=== PATIENT | male | born 1955 | race American Indian/Alaskan Native ===

== ENCOUNTER 2018-03-12 10:25 | Inpatient (IN) | payer OTHER ==
[2018-03-12] MEDS ORDERED: MORPHINE IV ONE (12:26)
[2018-03-12] MEDS ORDERED: ZOFRAN IV ONE (12:26)
--- NOTE | 2018-03-12 12:29 | Emergency Department Report ---
HPI - General Chief Complaint: Abdominal Pain Time Seen by Provider: 03/12/18 12:06 - HPI HPI: 62-year-old -Mex[place] male presents to the emergency department with a complaint of generalized abdominal pain, worse in the lower quadrants, as well as nausea and vomiting that has been going on since yesterday. He denies any fever, dysuria, diarrhea but does have some mild constipation. He last had a bowel movement 2 days ago. He did not take anything for his symptoms presentation. He has a past medical history of hypertension, but did not take his blood pressure medications today, as well as a history of diabetes. No recent travel or sick contacts at home. His primary care physician is Dr. Holliday. ED Past Medical Hx - Past Medical History Hx Hypertension: Yes - Social History Smoking Status: Never Smoker Substance Use Type: None - Medications Home Medications: Home Medications Medication Instructions Recorded Confirmed Last Taken Type glyBURIDE/METFORMIN HCL 1 each PO DAILY 03/12/18 03/12/18 Unknown History [Glyburide-Metformin 5-500 mg] ED Review of Systems ROS: Stated complaint: STOMACH PAIN Other details as noted in HPI Comment: All other systems reviewed and negative Constitutional: denies: chills, fever Eyes: denies: eye pain, eye discharge, vision change ENT: denies: ear pain, throat pain Respiratory: denies: cough, shortness of breath, wheezing Cardiovascular: denies: chest pain, palpitations Gastrointestinal: abdominal pain, nausea, vomiting, constipation Genitourinary: denies: urgency, dysuria Musculoskeletal: denies: back pain, joint swelling, arthralgia Skin: denies: rash, lesions Neurological: denies: headache, weakness, paresthesias Physical Exam - Physical Exam Vital Signs: Vital Signs 03/12/18 10:48 Temperature 98.1 F Pulse Rate 103 H Respiratory 20 Rate Blood Pressure 216/131 O2 Sat by Pulse 96 Oximetry Physical Exam: GENERAL: The patient is well-developed well-nourished. HENT: Normocephalic. Atraumatic. Patient has moist mucous membranes. EYES: Extraocular motions are intact. Pupils equal reactive to light bilaterally. NECK: Supple. Trachea is midline. CHEST/LUNGS: Clear to auscultation. There is no respiratory distress noted. HEART/CARDIOVASCULAR: Regular. There is mild tachycardia. There is no murmur. ABDOMEN: Lower abdomen is firm and slightly distended but not rigid. Tenderness to palpation to the generalized abdomen but worse in the lower quadrants. No guarding. Patient has normal bowel sounds. SKIN: Skin is warm and dry. NEURO: The patient is awake, alert, and oriented. The patient is cooperative. The patient has no focal neurologic deficits. The patient has normal speech. MUSCULOSKELETAL: There is no tenderness or deformity. There is no limitation range of motion. There is no evidence of acute injury. ED Course Vital Signs 03/12/18 10:48 Temperature 98.1 F Pulse Rate 103 H Respiratory 20 Rate Blood Pressure 216/131 O2 Sat by Pulse 96 Oximetry ED Medical Decision Making - Lab Data Result diagrams: 03/12/18 12:29 03/12/18 12:29 - EKG Data -: EKG Interpreted by Ks EKG shows normal: sinus rhythm, axis, intervals, QRS complexes (LVH), ST-T waves (T-wave inversions isolated to aVL and V6) - EKG Data When compared to previous EKG there are: previous EKG unavailable Interpretation: other (sinus rhythm, LVH, inverted T waves to aVL and V6) - Radiology Data Radiology results: report reviewed CT ABDOMEN PELVIS WITHOUT CONTRAST: HISTORY: abdominal pain. COMPARISON: none. TECHNIQUE: Helical CT in 1.25mm intervals without IV contrast. Sagittal and coronal reconstructions. FINDINGS: Lung bases: Mild cardiomegaly. The visualized lung bases are clear. Liver: Normal. Biliary system: Normal. Pancreas: Normal. Spleen: Normal. Kidneys/ureters/bladder: Mild perinephric stranding is identified bilaterally. A few punctate calyceal stones are identified in both kidneys. The ureters are slightly prominent but no obvious ureteral stone. There is marked enlargement of the prostate gland. The bladder is unremarkable. A Allison catheter is in place. Adrenal glands: Normal. Aorta: Mild calcifications. No aneurysm. Intestines: There are scattered diverticula in the distal colon. No evidence for bowel obstruction or acute inflammation. Appendix: Not identified, correlate with history. Ascites: None. Adenopathy: None. Musculoskeletal: Intact. Mild lumbar spondylosis. IMPRESSION: No acute inflammatory process is appreciated. Mild cardiomegaly. Mild bilateral perinephric stranding and scattered punctate renal stones. Market enlargement of the prostate gland. Transcribed By: TTR Dictated By: ALICE CUEVAS JR, MD Electronically Authenticated By: ALICE CUEVAS JR, MD Signed Date/Time: 03/12/18 6619 - Medical Decision Making Patient presents with abdominal pain, nausea, vomiting and presents with extremely elevated blood pressure. I took the bedside ultrasound and the patient appears to have some urinary retention and hydronephrosis. A Allison catheter was placed and the patient started to diurese about 1400 mL of urine and started feeling better. Labs show a creatinine of about 3.4 with a GFR of 22 and this patient that does not have any previous renal insufficiency history. There is a leukocytosis of 18,000. Urinalysis does not show any urinary tract infection. Patient has blood sugar greater than 600 but no signs of diabetic ketoacidosis at this time. He was given some IV insulin, antibiotics. Patient will be admitted to the hospital for further evaluation and treatment and was accepted for admission by the hospitalist. - Differential Diagnosis BPH, prostate cancer, UTI, hydronephrosis, colitis Critical Care Time: Yes Critical care time in (mins) excluding proc time.: 31 Critical care attestation.: If time is entered above; I have spent that time in minutes in the direct care of this critically ill patient, excluding procedure time. Critical care time spent on this patient during his initial evaluation, multiple re-evaluations, ordering an interpretation of labs and imaging, ordering and administration of medications. Critical Care Time: 31 minutes ED Disposition Clinical Impression: Hypertensive urgency, Hyperglycemia, Urinary retention, SIRS (systemic inflammatory response syndrome) Acute renal failure Qualifiers: Acute renal failure type: unspecified Qualified Code(s): N17.9 - Acute kidney failure, unspecified Disposition: DC-09 OP ADMIT IP TO THIS HOSP Is pt being admited?: Yes Condition: Serious Time of Disposition: 16:15
[2018-03-12 12:44] LABS: Basophils # (Auto) 0.1 K/mm3 (0.0-0.1); Basophils % (Auto) 0.3 % (0.0-1.8); Hematocrit 50.5 % (35.5-45.6); Hemoglobin 16.7 gm/dl (11.8-15.2); Lymphocytes # (Auto) 1.4 K/mm3 (1.2-5.4); Lymphocytes % (Auto) 7.7 % (13.4-35.0); Mean Corpuscular HGB Conc 33 % (32-34); Mean Corpuscular Hemoglobin 29 pg (28-32); Mean Corpuscular Volume 89 fl (84-94); Monocytes # (Auto) 1.1 K/mm3 (0.0-0.8); Monocytes % (Auto) 6.3 % (0.0-7.3); Platelet Count 254 K/mm3 (140-440); Red Blood Count 5.68 M/mm3 (3.65-5.03); Red Cell Distribution Width 14.3 % (13.2-15.2)
[2018-03-12 13:05] LABS: Albumin 4.5 g/dL (3.9-5); Bilirubin,Direct 0.3 mg/dL (0-0.2); Calcium 10.3 mg/dL (8.4-10.2)
[2018-03-12] MEDS ORDERED: NACL 0.9% 1000 ML 1,000 ML ONE (13:06)
[2018-03-12] MEDS ORDERED: APRESOLINE IV ONE ×2 (13:11→13:45)
--- NOTE | 2018-03-12 13:24 | XRay Report ---
ABDOMEN, 2 VIEWS: HISTORY: Abdominal pain. There is moderate stool throughout the colon and rectum. The abdominal gas pattern is unremarkable. No masses or organomegaly is identified and there is no gross evidence of free air or fluid. No significant soft tissue calcifications are noted. IMPRESSION: Fecal retention.
[2018-03-12] MEDS ORDERED: HumuLIN R IV ONE (13:44)
[2018-03-12 14:13] LABS: Bilirubin,Urine NEG (Negative); Blood,Urine NEG (Negative); Color,Urine Yellow (Yellow); Protein,Urine <15 mg/dL mg/dL (Negative); Urobilinogen,Urine < 2.0 mg/dL (<2.0)
[2018-03-12 14:15] LABS: Bacteria,Urine 1+ /HPF (Negative)
[2018-03-12 14:16] LABS: Mucus,Urine FEW /HPF; WBC,Urine < 1.0 /HPF (0.0-6.0)
--- NOTE | 2018-03-12 14:53 | Cat Scan Report ---
CT ABDOMEN PELVIS WITHOUT CONTRAST: HISTORY: abdominal pain. COMPARISON: none. TECHNIQUE: Helical CT in 1.25mm intervals without IV contrast. Sagittal and coronal reconstructions. FINDINGS: Lung bases: Mild cardiomegaly. The visualized lung bases are clear. Liver: Normal. Biliary system: Normal. Pancreas: Normal. Spleen: Normal. Kidneys/ureters/bladder: Mild perinephric stranding is identified bilaterally. A few punctate calyceal stones are identified in both kidneys. The ureters are slightly prominent but no obvious ureteral stone. There is marked enlargement of the prostate gland. The bladder is unremarkable. A Allison catheter is in place. Adrenal glands: Normal. Aorta: Mild calcifications. No aneurysm. Intestines: There are scattered diverticula in the distal colon. No evidence for bowel obstruction or acute inflammation. Appendix: Not identified, correlate with history. Ascites: None. Adenopathy: None. Musculoskeletal: Intact. Mild lumbar spondylosis. IMPRESSION: No acute inflammatory process is appreciated. Mild cardiomegaly. Mild bilateral perinephric stranding and scattered punctate renal stones. Market enlargement of the prostate gland.
[2018-03-12] MEDS ORDERED: ZOSYN/NS 4.5GM/100ML 4.5 GM/100 ML VIAL IV SCH ×2 (15:00→22:00)
--- NOTE | 2018-03-12 15:07 | History and Physical Report ---
History of Present Illness Chief complaint: my stomach hurts History of present illness: 62 YO Male with HTN,DM presents to ED for evaluation. Pt states that he has experienced generalized abdominal pain over the past 1 day, with persistent symptoms over the same time frame. Pt also acknowledges nausea, multiple episodes of vomiting, polydipsia, and polyuria. Pt denies fever, chills, CP, Palpitations, Trauma, BRBPR, productive cough, skin rash or recent ill contacts. Pt seen and evaluated in ED and found to have evidence of Sepsis, DKA , Acidosis, Acute Renal Failure, as well Accelerated Hypertension. Pt also found to have urinary retention, which was resolved with placement of thompson catheter with return of 1400cc of urine. Pt admitted to ICU and initiated on Sepsis, and DKA protocols. Past History Past Medical History: diabetes, hypertension Past Surgical History: No surgical history, Other (reviewed) Social history: single. denies: smoking, alcohol abuse, prescription drug abuse Family history: diabetes, hypertension Medications and Allergies Allergies Allergy/AdvReac Type Severity Reaction Status Date / Time No Known Allergies Allergy Unverified 03/12/18 10:48 Home Medications Medication Instructions Recorded Confirmed Last Taken Type glyBURIDE/METFORMIN HCL 1 each PO DAILY 03/12/18 03/12/18 Unknown History [Glyburide-Metformin 5-500 mg] Active Meds: Active Medications Piperacillin Sod/Tazobactam Sod (Zosyn/Ns 4.5gm/100ml) 4.5 gm in 100 mls @ 200 mls/hr IV ONCE SIRENA Review of Systems Constitutional: no weight loss, no weight gain, no fever, no chills Ears, nose, mouth and throat: no ear pain, no ear discharge, no tinnitis, no decreased hearing, no nose pain Cardiovascular: no chest pain, no orthopnea, no palpitations, no rapid/ irregular heart beat, no edema, no syncope Respiratory: no cough, no cough with sputum, no excessive sputum, no hemoptysis , no shortness of breath Gastrointestinal: abdominal pain, nausea, vomiting, no constipation, no change in bowel habits, no hematemesis, no melena, no hematochezia, no loss of appetite Genitourinary Male: no dysuria, no hematuria, no flank pain, no discharge, no urinary frequency Rectal: no pain, no incontinence, no bleeding Musculoskeletal: no neck stiffness, no neck pain, no shooting arm pain, no arm numbness/tingling, no low back pain, no shooting leg pain, no leg numbness/ tingling Integumentary: no rash, no pruritis, no redness, no sores, no wounds Neurological: no transient paralysis, no paralysis, no weakness, no syncope, no tremors, no aphasia, no change in mentation, no memory loss Psychiatric: no memory loss, no change in sleep habits, no sleep disturbances, no insomnia, no hypersomnia, no change in appetite, no change in libido Endocrine: polyphagia, polydipsia, polyuria, no cold intolerance, no heat intolerance, no nocturia, no excessive sweating, no flushing, no deepening of the voice, no thyroid mass, no palpatations, no high blood sugars Hematologic/Lymphatic: no easy bruising, no easy bleeding, no lymphadenopathy, no lymphedema Allergic/Immunologic: no urticaria, no allergic rhinitis, no persistent infections, no anaphylaxis, no angioedema Exam - Constitutional Vitals: Temp Pulse Resp BP Pulse Ox 98.1 F 86 22 183/82 97 03/12/18 10:48 03/12/18 14:30 03/12/18 14:30 03/12/18 14:30 03/12/18 14:30 General appearance: Present: mild distress - EENT Eyes: Present: PERRL ENT: hearing intact, clear oral mucosa - Neck Neck: Present: supple, normal ROM - Respiratory Respiratory effort: normal Respiratory: bilateral: CTA - Cardiovascular Heart Sounds: Present: S1 & S2. Absent: rub, click - Extremities Extremities: pulses symmetrical, No edema Peripheral Pulses: within normal limits - Abdominal General gastrointestinal: Present: soft, non-tender, non-distended, normal bowel sounds Male genitourinary: Present: normal - Integumentary Integumentary: Present: clear, warm, dry - Musculoskeletal Musculoskeletal: generalized weakness - Psychiatric Psychiatric: appropriate mood/affect, intact judgment & insight - Neurologic Neurologic: CNII-XII intact, moves all extremities Results - Labs CBC & Chem 7: 03/12/18 12:29 03/12/18 15:36 Labs: Abnormal lab results 03/12/18 03/12/18 03/12/18 Range/Units 12:29 12:29 12:29 WBC 18.0 H (4.5-11.0) K/mm3 RBC 5.68 H (3.65-5.03) M/mm3 Hgb 16.7 H (11.8-15.2) gm/dl Hct 50.5 H (35.5-45.6) % Lymph % (Auto) 7.7 L (13.4-35.0) % Mcminn # 1.1 H (0.0-0.8) K/mm3 Seg Neutrophils % 85.7 H (40.0-70.0) % Seg Neutrophils # 15.4 H (1.8-7.7) K/mm3 Sodium 135 L (137-145) mmol/L Potassium 5.1 H (3.6-5.0) mmol/L Chloride 95.7 L (98-107) mmol/L BUN 43 H (9-20) mg/dL Creatinine 3.4 H (0.8-1.5) mg/dL Glucose 608 H* (75-100) mg/dL Lactic Acid 3.00 H* (0.7-2.0) mmol/L Calcium 10.3 H (8.4-10.2) mg/dL Direct Bilirubin 0.3 H (0-0.2) mg/dL AST 54 H (5-40) units/L Total Protein 8.5 H (6.3-8.2) g/dL 03/12/18 03/12/18 Range/Units 13:08 14:11 WBC (4.5-11.0) K/mm3 RBC (3.65-5.03) M/mm3 Hgb (11.8-15.2) gm/dl Hct (35.5-45.6) % Lymph % (Auto) (13.4-35.0) % Mcminn # (0.0-0.8) K/mm3 Seg Neutrophils % (40.0-70.0) % Seg Neutrophils # (1.8-7.7) K/mm3 Sodium (137-145) mmol/L Potassium (3.6-5.0) mmol/L Chloride (98-107) mmol/L BUN (9-20) mg/dL Creatinine (0.8-1.5) mg/dL Glucose (75-100) mg/dL Lactic Acid 3.00 H* 3.20 H* (0.7-2.0) mmol/L Calcium (8.4-10.2) mg/dL Direct Bilirubin (0-0.2) mg/dL AST (5-40) units/L Total Protein (6.3-8.2) g/dL Assessment and Plan - Patient Problems (1) Sepsis Current Visit: Yes Status: Acute Qualifiers: Sepsis type: sepsis due to unspecified organism Qualified Code(s): A41.9 - Sepsis, unspecified organism Plan to address problem: IV antibiotics, IVF resuscitation, monitor uop q shift, blood cultures, urinalysis, chest x ray,CBC, bmp, serial lactic acid. (2) ARF (acute renal failure) with tubular necrosis Current Visit: Yes Status: Acute Plan to address problem: IVF resuscitation, monitor uop q shift, Nephrology consulted in ED, (3) DKA (diabetic ketoacidoses) Current Visit: Yes Status: Acute Qualifiers: Diabetes mellitus type: type 1 Plan to address problem: DKA protocol: Insulin drip, IVF resuscitation, monitor serum potassium, monitor anion gap with serial bmp, The high probability of a clinically significant, sudden or life threatening deterioration of the [endocrine, pulmonary, renal] system(s) required my full and direct attention, intervention and personal management. The aggregate critical care time was [65] minutes. This time is in addition to time spent performing reported procedures but includes the following: [x] Data Review and interpretation [x] Patient assessment and monitoring of vital signs [x] Documentation [x] Medication orders and management (4) Acidosis Current Visit: Yes Status: Acute Plan to address problem: treat sepsis, serial lactic acid, IVF resuscitation therapy. (5) Hypertensive urgency, malignant Current Visit: Yes Status: Acute Plan to address problem: IN hydralazine prn, pain control, (6) DVT prophylaxis Current Visit: Yes Status: Acute Plan to address problem: SCD to BLE while in bed.
[2018-03-12] MEDS ORDERED: VANCOMYCIN 1,750 MG in NACL 0.9% 500 ML 500 ML IV ONE (15:10)
[2018-03-12] MEDS ORDERED: NACL 0.9% 1000 ML IV ONE (15:10)
[2018-03-12] MEDS ORDERED: D50W (25GM) Syringe IV PRN (15:10)
[2018-03-12] MEDS ORDERED: SODIUM CHLORIDE FLUSH SYRINGE 10 ML IV PRN (15:10)
[2018-03-12] MEDS ORDERED: NACL 0.9% 250ML 250 ML ONE (16:06)
[2018-03-12 16:14] LABS: Calcium 10.8 mg/dL (8.4-10.2)
[2018-03-12] MEDS: HumuLIN R 100 UNITS in NACL 0.9% 99 ML IV SCH ×3 (17:25→19:17)
[2018-03-12 19:18] LABS: Calcium 10.1 mg/dL (8.4-10.2)
[2018-03-12] MEDS: APRESOLINE IV PRN (19:50)
[2018-03-12] MEDS ORDERED: D5W/NS W/KCL 20MEQ 20 MEQ/1,000 ML BAG IV SCH (20:00)
[2018-03-12 21:02] LABS: Amphetamine Screen,Urine PRESUMPTIVE NEGATIVE; Benzodiazepines Screen,Urine PRESUMPTIVE NEGATIVE; Cannabinoid Screen,Urine PRESUMPTIVE NEGATIVE; Cocaine Screen,Urine PRESUMPTIVE NEGATIVE; Methadone Screen,Urine PRESUMPTIVE NEGATIVE; Opiate Screen,Urine PRESUMPTIVE NEGATIVE
[2018-03-12 21:17] LABS: Calcium 9.7 mg/dL (8.4-10.2)
[2018-03-12] MEDS: ZOSYN/NS 2.25 GM/50ML 2.25 GM/50 ML BAG IV SCH (22:20)
[2018-03-12] MEDS: SODIUM CHLORIDE FLUSH SYRINGE 10 ML IV SCH (22:25)
[2018-03-12 23:27] LABS: Calcium 9.2 mg/dL (8.4-10.2)
[2018-03-12] MEDS ORDERED: HumuLIN R SUB-Q SCH (23:45)
[2018-03-13] MEDS: APRESOLINE IV PRN ×3 (02:57→15:25)
[2018-03-13] MEDS: ZOSYN/NS 2.25 GM/50ML 2.25 GM/50 ML BAG IV SCH ×2 (03:04→09:00)
[2018-03-13] MEDS ORDERED: HumuLIN R SUB-Q SCH (04:00)
[2018-03-13] MEDS: D5W/NS W/KCL 20MEQ 20 MEQ/1,000 ML BAG IV SCH ×2 (04:58→06:23)
[2018-03-13 06:17] LABS: BUN/Creatinine Ratio 19; Blood Urea Nitrogen 26 mg/dL (9-20); Calcium 9.3 mg/dL (8.4-10.2); Hemolysis Index 28
--- NOTE | 2018-03-13 08:13 | Consultation ---
History of Present Illness - Reason for Consult Consult date: 03/13/18 acute renal failure, hyperkalemia, metabolic acidosis - History of Present Illness The patient was a 62 YO Male with history significant for HTN and DM who presented to [facility] ED with c/o abdominal pain of one day duration. Patient was a poor historian. The pain was generalized, persistent and not radiating. Pt also reported nausea, vomiting, polydipsia and polyuria. Pt denied fever, chills , CP, dysuria, hematuria, DUQUE, rash or recent ill contacts. Pt was found to have BP around 220/130, blood sugar 608, creatinine 3.4 and potassium 5.1. He was admitted with Sepsis, DKA, Acute Renal Failure and Accelerated Hypertension. Pt also found to have urinary retention, return of 1400cc of urine with placement of thompson catheter. Past History Past Medical History: diabetes, hypertension Past Surgical History: No surgical history, Other (reviewed) Social history: single. denies: smoking, alcohol abuse, prescription drug abuse Family history: diabetes, hypertension Medications and Allergies Allergies Allergy/AdvReac Type Severity Reaction Status Date / Time No Known Allergies Allergy Unverified 03/12/18 10:48 Home Medications Medication Instructions Recorded Confirmed Last Taken Type glyBURIDE/METFORMIN HCL 1 each PO DAILY 03/12/18 03/12/18 Unknown History [Glyburide-Metformin 5-500 mg] Active Meds: Active Medications Dextrose (D50w (25gm) Syringe) 0 ml IV PRN PRN PRN Reason: Hypoglycemia Hydralazine HCl (Apresoline) 10 mg IV Q6HR PRN PRN Reason: Hypertension Last Admin: 03/13/18 02:57 Dose: 10 mg Insulin Human Regular 100 (units/ Sodium Chloride) 100 mls @ 1 mls/hr IV TITR SIRENA; Protocol Last Titration: 03/13/18 07:01 Dose: 2.5 units/hr, 2.5 mls/hr Piperacillin Sod/Tazobactam Sod (Zosyn/Ns 2.25 Gm/50ml) 2.25 gm in 50 mls @ 100 mls/hr IV Q6H SIRENA Last Infusion: 03/13/18 03:30 Dose: Infused Potassium Chloride/Dextrose/Sod Cl (D5w/Ns W/Kcl 20meq) 20 meq in 1,000 mls @ 100 mls/hr IV DIRECT SIRENA Last Admin: 03/13/18 06:23 Dose: 100 mls/hr Sodium Chloride (Sodium Chloride Flush Syringe 10 Ml) 10 ml IV BID [facility] Last Admin: 03/12/18 22:25 Dose: 10 ml Sodium Chloride (Sodium Chloride Flush Syringe 10 Ml) 10 ml IV PRN PRN PRN Reason: LINE FLUSH Review of Systems ROS unobtainable: due to mental status (very poor historian) Exam - Vital Signs Vital signs: Vital Signs Temp Pulse Resp BP Pulse Ox 98.1 F 103 H 20 216/131 96 03/12/18 10:48 03/12/18 10:48 03/12/18 10:48 03/12/18 10:48 03/12/18 10:48 - General Appearance General appearance: well-developed, well-nourished, appears stated age, other ( not in distress) EENT: ATNC, PERRL, hearing intact, vision intact Neck: Present: neck supple, trachea midline Respiratory: Clear to Ascultation Heart: regular, S1S2, no murmurs Gastrointestinal: Present: normoactive bowel sounds, other (thompson catheter). Absent: tenderness Integumentary: no rash, warm and dry Neurologic: no focal deficit, no asterixis Musculoskeletal: Present: other (no edema) Psychiatric: cooperative Results - Lab Results 03/12/18 12:29 03/13/18 05:22 Most recent lab results Calcium 9.3 mg/dL (8.4-10.2) 03/13/18 05:22 Phosphorus 3.20 mg/dL (2.5-4.5) 03/12/18 15:36 Magnesium 2.80 mg/dL (1.7-2.3) H 03/12/18 15:36 - Image Kidney/bladder ultrasound: other Assessment and Plan 1. Acute kidney injury: Likely Vasomotor / hemodynamic JAMARI in the setting of volume depletion. Real function is improving. Continue IV fluids. CT was negative for hydronephrosis. Monitor. 2. Urinary retention: S/p thompson catheter. Elevated PSA. On Finasteride. 3. Electrolytes: Hyperkalemia, improved. Hypernatremia, 1/2 NS. 4. Hyperosmolar state: Improving. 5. Sepsis. 6. Uncontrolled HTN: Resume home meds.
--- NOTE | 2018-03-13 09:31 | Consultation ---
History of Present Illness Consult date: 03/13/18 Requesting physician: NETTA GARCIA Reason for consult: other (Sepsis Syndrome; DKA; JAMARI) History of present illness: PULMONARY/CCM CONSULT NOTE (Full dictation # [id number]) Please see dictated notes for full details Past History Past Medical History: diabetes, hypertension Past Surgical History: No surgical history, Other (reviewed) Social history: single. denies: smoking, alcohol abuse, prescription drug abuse Family history: diabetes, hypertension Medications and Allergies Allergies Allergy/AdvReac Type Severity Reaction Status Date / Time No Known Allergies Allergy Unverified 03/12/18 10:48 Home Medications Medication Instructions Recorded Confirmed Last Taken Type glyBURIDE/METFORMIN HCL 1 each PO DAILY 03/12/18 03/12/18 Unknown History [Glyburide-Metformin 5-500 mg] Active Meds: Active Medications Dextrose (D50w (25gm) Syringe) 0 ml IV PRN PRN PRN Reason: Hypoglycemia Hydralazine HCl (Apresoline) 10 mg IV Q6HR PRN PRN Reason: Hypertension Last Admin: 03/13/18 09:17 Dose: 10 mg Insulin Human Regular 100 (units/ Sodium Chloride) 100 mls @ 1 mls/hr IV TITR SIRENA; Protocol Last Titration: 03/13/18 09:02 Dose: 1 units/hr, 1 mls/hr Piperacillin Sod/Tazobactam Sod (Zosyn/Ns 2.25 Gm/50ml) 2.25 gm in 50 mls @ 100 mls/hr IV Q6H SIRENA Last Admin: 03/13/18 09:00 Dose: 100 mls/hr Potassium Chloride/Dextrose/Sod Cl (D5w/Ns W/Kcl 20meq) 20 meq in 1,000 mls @ 100 mls/hr IV DIRECT SIRENA Last Admin: 03/13/18 06:23 Dose: 100 mls/hr Sodium Chloride (Sodium Chloride Flush Syringe 10 Ml) 10 ml IV BID SIRENA Last Admin: 03/12/18 22:25 Dose: 10 ml Sodium Chloride (Sodium Chloride Flush Syringe 10 Ml) 10 ml IV PRN PRN PRN Reason: LINE FLUSH Physical Examination Vital signs: Vital Signs Temp Pulse Resp BP Pulse Ox 98.1 F 103 H 20 216/131 96 03/12/18 10:48 03/12/18 10:48 03/12/18 10:48 03/12/18 10:48 03/12/18 10:48 Results - Laboratory Findings CBC and BMP: 03/12/18 12:29 03/13/18 05:22 Abnormal lab findings: Abnormal Labs 03/12/18 03/12/18 03/12/18 12:29 12:29 12:29 WBC 18.0 H RBC 5.68 H Hgb 16.7 H Hct 50.5 H Lymph % (Auto) 7.7 L [place] # 1.1 H Seg Neutrophils % 85.7 H Seg Neutrophils # 15.4 H Sodium 135 L Potassium 5.1 H Chloride 95.7 L BUN 43 H Creatinine 3.4 H Glucose 608 H* POC Glucose Hemoglobin A1c Lactic Acid 3.00 H* Calcium 10.3 H Magnesium Direct Bilirubin 0.3 H AST 54 H Total Protein 8.5 H 03/12/18 03/12/18 03/12/18 13:08 14:11 15:31 WBC RBC Hgb Hct Lymph % (Auto) [place] # Seg Neutrophils % Seg Neutrophils # Sodium Potassium Chloride BUN Creatinine Glucose POC Glucose 300 H Hemoglobin A1c Lactic Acid 3.00 H* 3.20 H* Calcium Magnesium Direct Bilirubin AST Total Protein 03/12/18 03/12/18 03/12/18 15:36 15:36 15:36 WBC RBC Hgb Hct Lymph % (Auto) [place] # Seg Neutrophils % Seg Neutrophils # Sodium Potassium Chloride BUN Creatinine Glucose POC Glucose Hemoglobin A1c 9.4 H Lactic Acid 5.30 H* Calcium Magnesium 2.80 H Direct Bilirubin AST Total Protein 03/12/18 03/12/18 03/12/18 15:36 17:05 18:05 WBC RBC Hgb Hct Lymph % (Auto) [place] # Seg Neutrophils % Seg Neutrophils # Sodium Potassium Chloride BUN 42 H Creatinine 3.0 H Glucose 317 H POC Glucose 267 H 192 H Hemoglobin A1c Lactic Acid Calcium 10.8 H Magnesium Direct Bilirubin AST Total Protein 03/12/18 03/12/18 03/12/18 18:50 18:50 19:07 WBC RBC Hgb Hct Lymph % (Auto) [place] # Seg Neutrophils % Seg Neutrophils # Sodium 148 H Potassium Chloride 109.7 H BUN 39 H Creatinine 2.5 H Glucose 144 H POC Glucose 142 H Hemoglobin A1c Lactic Acid 3.70 H* Calcium Magnesium Direct Bilirubin AST Total Protein 10/08/2503/12/18 03/12/18 20:02 20:30 20:30 WBC RBC Hgb Hct Lymph % (Auto) [place] # Seg Neutrophils % Seg Neutrophils # Sodium 148 H Potassium Chloride 111.9 H BUN 35 H Creatinine 2.2 H Glucose 113 H POC Glucose 116 H Hemoglobin A1c Lactic Acid 2.40 H* Calcium Magnesium Direct Bilirubin AST Total Protein 03/12/18 03/12/18 03/12/18 21:04 21:53 22:39 WBC RBC Hgb Hct Lymph % (Auto) [place] # Seg Neutrophils % Seg Neutrophils # Sodium 148 H Potassium Chloride 113.2 H BUN 31 H Creatinine 1.8 H Glucose 167 H POC Glucose 107 H 129 H Hemoglobin A1c Lactic Acid Calcium Magnesium Direct Bilirubin AST Total Protein 03/12/18 03/13/18 03/13/18 23:30 03:26 03:55 WBC RBC Hgb Hct Lymph % (Auto) [place] # Seg Neutrophils % Seg Neutrophils # Sodium Potassium Chloride BUN Creatinine Glucose POC Glucose 176 H 227 H Hemoglobin A1c Lactic Acid 5.40 H* Calcium Magnesium Direct Bilirubin AST Total Protein 03/13/18 03/13/18 03/13/18 05:01 05:22 06:59 WBC RBC Hgb Hct Lymph % (Auto) [place] # Seg Neutrophils % Seg Neutrophils # Sodium 149 H Potassium Chloride 113.9 H BUN 26 H Creatinine Glucose 262 H POC Glucose 231 H 178 H Hemoglobin A1c Lactic Acid Calcium Magnesium Direct Bilirubin AST Total Protein 03/13/18 08:14 WBC RBC Hgb Hct Lymph % (Auto) [place] # Seg Neutrophils % Seg Neutrophils # Sodium Potassium Chloride BUN Creatinine Glucose POC Glucose 134 H Hemoglobin A1c Lactic Acid Calcium Magnesium Direct Bilirubin AST Total Protein
[2018-03-13] MEDS: SODIUM CHLORIDE FLUSH SYRINGE 10 ML IV SCH ×2 (10:32→21:49)
--- NOTE | 2018-03-13 10:36 | XRay Report ---
AP CHEST: HISTORY: Hypertension emergency Borderline to mild cardiomegaly is suspected. Pulmonary vascularity is within normal limits. The lungs are clear. The bony structures are intact. IMPRESSION: Borderline to mild cardiomegaly. Lungs clear.
[2018-03-13] MEDS: LOVENOX SUB-Q SCH (10:43)
--- NOTE | 2018-03-13 10:56 | Progress Note ---
Assessment and Plan Assessment and plan: my stomach hurts History of present illness: 62 YO Male with HTN,DM presents to ED for evaluation. Pt states that he has experienced generalized abdominal pain over the past 1 day, with persistent symptoms over the same time frame. Pt also acknowledges nausea, multiple episodes of vomiting, polydipsia, and polyuria. Pt denies fever, chills, CP, Palpitations, Trauma, BRBPR, productive cough, skin rash or recent ill contacts. Pt seen and evaluated in ED and found to have evidence of Sepsis, DKA , Acidosis, Acute Renal Failure, as well Accelerated Hypertension. Pt also found to have urinary retention, which was resolved with placement of thompson catheter with return of 1400cc of urine. Pt admitted to ICU and initiated on Sepsis, and DKA protocols. Past History Past Medical History: diabetes, hypertension Sepsis ruled out, w/o negative Obstructive uropathy due to enlarged prostate -keep thompson in place, fup PSA, urology consulted started flomax and finasteride ARF (acute renal failure) with acute tubular stasis -continue thompson, continue IVF, resolving DKA (diabetic ketoacidoses) transition to Sq insulins Hypertensive urgency, malignant optimize BP meds CCT 33 minutes History Interval history: Review of systems Constitutional: No fevers, no malaise, no joint pains CVS: No chest pain, no orthopnea, no dyspnea on exertion, no pedal edema GI: No abdominal pain, no diarrhea, no vomiting, no constipation Respiratory: No shortness of breath, no wheezing, no coughing Hospitalist Physical - Physical exam Narrative exam: General.: Appears well, no distress, nontoxic HEENT: Moist mucous membranes, extraocular muscles intact, no lymphadenopathy Neck: supple Cardiac: S1-S2 heard Lungs: clear to auscultation bilaterally Abdomen: soft , nontender, nondistended, bowel sounds positive Extremities: no edema clubbing or cyanosis Skin: no rash or lesions Neurologic: no gross focal deficits Psych: appropriate behavior, appropriate mood, corporative, judgment intact - Constitutional Vitals: Temp Pulse Resp BP Pulse Ox 97.3 F L 85 17 179/63 93 03/13/18 08:00 03/13/18 10:42 03/13/18 09:30 03/13/18 10:42 03/13/18 09:30 General appearance: Present: mild distress Results - Labs CBC & Chem 7: 03/12/18 12:29 03/14/18 05:00 Labs: Laboratory Last Values WBC 18.0 K/mm3 (4.5-11.0) H 03/12/18 12: RBC 5.68 M/mm3 (3.65-5.03) H 03/12/18 12: Hgb 16.7 gm/dl (11.8-15.2) H 03/12/18 12: Hct 50.5 % (35.5-45.6) H 03/12/18 12: MCV 89 fl (84-94) 03/12/18 12: MCH 29 pg (28-32) 03/12/18 12: MCHC 33 % (32-34) 03/12/18 12: RDW 14.3 % (13.2-15.2) 03/12/18 12: Plt Count 254 K/mm3 (140-440) 03/12/18 12: Lymph % (Auto) 7.7 % (13.4-35.0) L 03/12/18 12: [place] % (Auto) 6.3 % (0.0-7.3) 03/12/18 12: Eos % (Auto) 0.0 % (0.0-4.3) 03/12/18 12: Baso % (Auto) 0.3 % (0.0-1.8) 03/12/18 12: Lymph # 1.4 K/mm3 (1.2-5.4) 03/12/18 12: [place] # 1.1 K/mm3 (0.0-0.8) H 03/12/18 12: Eos # 0.0 K/mm3 (0.0-0.4) 03/12/18 12: Baso # 0.1 K/mm3 (0.0-0.1) 03/12/18 12: Seg Neutrophils % 85.7 % (40.0-70.0) H 03/12/18 12: Seg Neutrophils # 15.4 K/mm3 (1.8-7.7) H 03/12/18 12: VBG pH 7.343 (7.320-7.420) 03/12/18 13:45 Sodium 149 mmol/L (137-145) H 03/13/18 05:22 Potassium 4.5 mmol/L (3.6-5.0) 03/13/18 05:22 Chloride 113.9 mmol/L (98-107) H 03/13/18 05:22 Carbon Dioxide 22 mmol/L (22-30) 03/13/18 05:22 Anion Gap 18 mmol/L 03/13/18 05:22 BUN 26 mg/dL (9-20) H 03/13/18 05:22 Creatinine 1.4 mg/dL (0.8-1.5) 03/13/18 05:22 Estimated GFR > 60 ml/min 03/13/18 05:22 BUN/Creatinine Ratio 19 % 03/13/18 05:22 Glucose 262 mg/dL (75-100) H 03/13/18 05:22 POC Glucose 112 (70-105) H 03/13/18 09:57 Hemoglobin A1c 9.4 % (4-6) H 03/12/18 15:36 Lactic Acid 1.50 mmol/L (0.7-2.0) 03/13/18 05:20 Calcium 9.3 mg/dL (8.4-10.2) 03/13/18 05:22 Phosphorus 3.20 mg/dL (2.5-4.5) 03/12/18 15:36 Magnesium 2.80 mg/dL (1.7-2.3) H 03/12/18 15:36 Total Bilirubin 0.90 mg/dL (0.1-1.2) 03/12/18 12:29 Direct Bilirubin 0.3 mg/dL (0-0.2) H 03/12/18 12:29 Indirect Bilirubin 0.6 mg/dL 03/12/18 12:29 AST 54 units/L (5-40) H 03/12/18 12:29 ALT 22 units/L (7-56) 03/12/18 12:29 Alkaline Phosphatase 103 units/L (35-129) 03/12/18 12:29 Troponin T < 0.010 ng/mL (0.00-0.029) 03/12/18 12:29 Total Protein 8.5 g/dL (6.3-8.2) H 03/12/18 12:29 Albumin 4.5 g/dL (3.9-5) 03/12/18 12:29 Albumin/Globulin Ratio 1.1 % 03/12/18 12:29 Lipase 13 units/L (13-60) 03/12/18 12:29 Urine Color Yellow (Yellow) 03/12/18 13:51 Urine Turbidity Clear (Clear) 03/12/18 13:51 Urine pH 5.0 (5.0-7.0) 03/12/18 13:51 Ur Specific [place] 1.017 (1.003-1.030) 03/12/18 13:51 Urine Protein <15 mg/dl mg/dL (Negative) 03/12/18 13:51 Urine Glucose (UA) >=500 mg/dL (Negative) 03/12/18 13:51 Urine Ketones Neg mg/dL (Negative) 03/12/18 13:51 Urine Blood Neg (Negative) 03/12/18 13:51 Urine Nitrite Neg (Negative) 03/12/18 13:51 Urine Bilirubin Neg (Negative) 03/12/18 13:51 Urine Urobilinogen < 2.0 mg/dL (<2.0) 03/12/18 13:51 Ur Leukocyte Esterase Neg (Negative) 03/12/18 13:51 Urine WBC (Auto) < 1.0 /HPF (0.0-6.0) 03/12/18 13:51 Urine RBC (Auto) 1.0 /HPF (0.0-6.0) 03/12/18 13:51 U Epithel Cells (Auto) < 1.0 /HPF (0-13.0) 03/12/18 13:51 Urine Bacteria (Auto) 1+ /HPF (Negative) 03/12/18 13:51 Urine Mucus Few /HPF 03/12/18 13:51 Urine Opiates Screen Presumptive negative 03/12/18 19:54 Urine Methadone Screen Presumptive negative 03/12/18 19:54 Ur Barbiturates Screen Presumptive negative 03/12/18 19:54 Ur Phencyclidine Scrn Presumptive negative 03/12/18 19:54 Ur Amphetamines Screen Presumptive negative 03/12/18 19:54 U Benzodiazepines Scrn Presumptive negative 03/12/18 19:54 Urine Cocaine Screen Presumptive negative 03/12/18 19:54 U Marijuana (THC) Screen Presumptive negative 03/12/18 19:54 Drugs of Abuse Note Disclamer 03/12/18 19:54
[2018-03-13] MEDS ORDERED: APRESOLINE PO SCH (11:00)
[2018-03-13] MEDS ORDERED: LEVAQUIN PO SCH (11:00)
[2018-03-13] MEDS: FLOMAX PO SCH (11:48)
[2018-03-13] MEDS ORDERED: DIOVAN PO SCH (12:00)
[2018-03-13] MEDS ORDERED: PROCARDIA XL PO SCH (12:00)
[2018-03-13] MEDS ORDERED: NORVASC PO SCH ×2 (12:00)
[2018-03-13] MEDS: NACL 0.45% 1000 ML 1,000 ML IV SCH ×2 (12:16→22:03)
[2018-03-13] MEDS: HumaLOG SUB-Q SCH ×3 (12:24→21:54)
[2018-03-13] MEDS ORDERED: LANTUS SUB-Q ONE (13:00)
[2018-03-13] MEDS: PROSCAR PO SCH (15:27)
--- NOTE | 2018-03-13 17:06 | Consultation ---
History of Present Illness - Reason for Consult Consult date: 03/13/18 - History of Present Illness 62 YO Male with HTN,DM presents to ED for evaluation. Pt states that he has experienced generalized abdominal pain over the past 1 day, with persistent symptoms over the same time frame. Pt also acknowledges nausea, multiple episodes of vomiting, polydipsia, and polyuria. Pt seen and evaluated in ED and found to have evidence of Sepsis, DKA, Acidosis, Acute Renal Failure, as well Accelerated Hypertension. Pt also found to have urinary retention, which was resolved with placement of thompson catheter with return of 1400cc of urine. CTAP- BPH, + DJD spine, small non obstructing kidney stone appy as kid abd soft thompson brittany urine (circ) A/P BPH retention start flomax 1qd home on flomax, cipro & thompson (scripts on chart) will set up out pt urodynamics Past History Past Medical History: diabetes, hypertension Past Surgical History: No surgical history, Other (reviewed) Social history: single. denies: smoking, alcohol abuse, prescription drug abuse Family history: diabetes, hypertension Medications and Allergies Allergies Allergy/AdvReac Type Severity Reaction Status Date / Time No Known Allergies Allergy Unverified 03/12/18 10:48 Home Medications Medication Instructions Recorded Confirmed Last Taken Type glyBURIDE/METFORMIN HCL 1 each PO DAILY 03/12/18 03/12/18 Unknown History [Glyburide-Metformin 5-500 mg] Active Meds: Active Medications Dextrose (D50w (25gm) Syringe) 0 ml IV PRN PRN PRN Reason: Hypoglycemia Enoxaparin Sodium (Lovenox) 40 mg SUB-Q QDAY@1000 SIRENA Last Admin: 03/13/18 10:43 Dose: 40 mg Finasteride (Proscar) 5 mg PO QDAY [facility] Last Admin: 03/13/18 15:27 Dose: 5 mg Hydralazine HCl (Apresoline) 20 mg IV Q4HR PRN PRN Reason: BP 160/100 Last Admin: 03/13/18 15:25 Dose: 20 mg Insulin Human Regular 100 (units/ Sodium Chloride) 100 mls @ 1 mls/hr IV TITR SIRENA; Protocol Last Titration: 03/13/18 12:25 Dose: 0 units/hr, 0 mls/hr Sodium Chloride (Nacl 0.45% 1000 Ml) 1,000 mls @ 125 mls/hr IV DIRECT [facility] Last Admin: 03/13/18 12:16 Dose: 125 mls/hr Insulin Glargine (Lantus) 20 units SUB-Q QHS [facility] Insulin Human Lispro (Humalog) 0 unit SUB-Q ACHS [facility]; Protocol Last Admin: 03/13/18 12:24 Dose: Not Given Nifedipine (Procardia Xl) 60 mg PO Q12HR [facility] Sodium Chloride (Sodium Chloride Flush Syringe 10 Ml) 10 ml IV BID [facility] Last Admin: 03/13/18 10:32 Dose: 10 ml Sodium Chloride (Sodium Chloride Flush Syringe 10 Ml) 10 ml IV PRN PRN PRN Reason: LINE FLUSH Tamsulosin HCl (Flomax) 0.4 mg PO QDAY [facility] Last Admin: 03/13/18 11:48 Dose: 0.4 mg Valsartan (Diovan) 160 mg PO ONCE ONE Stop: 03/13/18 20:01 Valsartan (Diovan) 320 mg PO DAILY [facility] Exam - Constitutional Vitals: Temp Pulse Resp BP Pulse Ox 98.9 F 75 25 H 178/81 94 03/13/18 12:00 03/13/18 15:25 03/13/18 14:00 03/13/18 15:25 03/13/18 14:00 Results - Labs CBC & Chem 7: 03/12/18 12:29 03/13/18 05:22 Labs: Abnormal lab results 03/12/18 03/12/18 03/12/18 Range/Units 15:36 17:05 18:05 Sodium (137-145) mmol/L Chloride (98-107) mmol/L BUN (9-20) mg/dL Creatinine (0.8-1.5) mg/dL Glucose (75-100) mg/dL POC Glucose 267 H 192 H (70-105) Hemoglobin A1c 9.4 H (4-6) % Lactic Acid (0.7-2.0) mmol/L Prostate Specific Ag (0.00-4.00) ng/mL 03/12/18 03/12/18 03/12/18 Range/Units 18:50 18:50 19:07 Sodium 148 H (137-145) mmol/L Chloride 109.7 H (98-107) mmol/L BUN 39 H (9-20) mg/dL Creatinine 2.5 H (0.8-1.5) mg/dL Glucose 144 H (75-100) mg/dL POC Glucose 142 H (70-105) Hemoglobin A1c (4-6) % Lactic Acid 3.70 H* (0.7-2.0) mmol/L Prostate Specific Ag (0.00-4.00) ng/mL 03/12/18 03/12/18 03/12/18 Range/Units 20:02 20:30 20:30 Sodium 148 H (137-145) mmol/L Chloride 111.9 H (98-107) mmol/L BUN 35 H (9-20) mg/dL Creatinine 2.2 H (0.8-1.5) mg/dL Glucose 113 H (75-100) mg/dL POC Glucose 116 H (70-105) Hemoglobin A1c (4-6) % Lactic Acid 2.40 H* (0.7-2.0) mmol/L Prostate Specific Ag (0.00-4.00) ng/mL 03/12/18 03/12/18 03/12/18 Range/Units 21:04 21:53 22:39 Sodium 148 H (137-145) mmol/L Chloride 113.2 H (98-107) mmol/L BUN 31 H (9-20) mg/dL Creatinine 1.8 H (0.8-1.5) mg/dL Glucose 167 H (75-100) mg/dL POC Glucose 107 H 129 H (70-105) Hemoglobin A1c (4-6) % Lactic Acid (0.7-2.0) mmol/L Prostate Specific Ag (0.00-4.00) ng/mL 03/12/18 03/13/18 03/13/18 Range/Units 23:30 03:26 03:55 Sodium (137-145) mmol/L Chloride (98-107) mmol/L BUN (9-20) mg/dL Creatinine (0.8-1.5) mg/dL Glucose (75-100) mg/dL POC Glucose 176 H 227 H (70-105) Hemoglobin A1c (4-6) % Lactic Acid 5.40 H* (0.7-2.0) mmol/L Prostate Specific Ag (0.00-4.00) ng/mL 03/13/18 03/13/18 03/13/18 Range/Units 05:01 05:22 06:59 Sodium 149 H (137-145) mmol/L Chloride 113.9 H (98-107) mmol/L BUN 26 H (9-20) mg/dL Creatinine (0.8-1.5) mg/dL Glucose 262 H (75-100) mg/dL POC Glucose 231 H 178 H (70-105) Hemoglobin A1c (4-6) % Lactic Acid (0.7-2.0) mmol/L Prostate Specific Ag (0.00-4.00) ng/mL 03/13/18 03/13/18 03/13/18 Range/Units 08:14 09:01 09:57 Sodium (137-145) mmol/L Chloride (98-107) mmol/L BUN (9-20) mg/dL Creatinine (0.8-1.5) mg/dL Glucose (75-100) mg/dL POC Glucose 134 H 115 H 112 H (70-105) Hemoglobin A1c (4-6) % Lactic Acid (0.7-2.0) mmol/L Prostate Specific Ag (0.00-4.00) ng/mL 03/13/18 03/13/18 Range/Units 10:12 11:28 Sodium (137-145) mmol/L Chloride (98-107) mmol/L BUN (9-20) mg/dL Creatinine (0.8-1.5) mg/dL Glucose (75-100) mg/dL POC Glucose 139 H (70-105) Hemoglobin A1c (4-6) % Lactic Acid (0.7-2.0) mmol/L Prostate Specific Ag 6.08 H (0.00-4.00) ng/mL
[2018-03-13] MEDS ORDERED: DIOVAN PO ONE (20:00)
[2018-03-13] MEDS: PROCARDIA XL PO SCH (21:49)
[2018-03-13] MEDS ORDERED: LANTUS SUB-Q SCH (22:00)
--- NOTE | 2018-03-14 00:06 | Consultation ---
PULMONARY CRITICAL CARE CONSULTATION NOTE CONSULTING PHYSICIAN: Dr. Jang. REASON FOR CONSULTATION: Critical care management. CHIEF COMPLAINT AND HISTORY OF PRESENT ILLNESS: The patient is a 62-year-old male with past medical history significant for a diagnosis of diabetes and hypertension, who presented to the Emergency Room after waking up with generalized abdominal pain. He stated that he tried to go to the bathroom, could not urinate. He denied any history of dysuria or gross hematuria. He denied any knowledge of prostatic problems. He had episodes of nausea and vomiting. He had polydipsia and polyuria. He came into the Emergency Room. He denied fevers or chills. Denied any chest pains or palpitations. Denied any trauma to the abdomen. Denied any sick contacts. He admitted to a certain element of noncompliance at home. In the ER, he was found to have a distended bladder and about 1400 mL of urine was evacuated on placement. He also was found to have elevated serum creatinine and new kidney injury. He was found to also be in diabetic ketoacidosis. He was transferred to the Intensive Care Unit where I stopped by to see him. I should mention his blood pressure was also elevated and he was also admitted with hypertensive urgency. When I stopped by to see him, he was feeling better. He remained on an insulin drip, but he was down to about 2 units per hour. He was feeling better and wanted to eat. No more nausea, no more vomiting, no palpitations. He denied any new leg pain or swelling, either unilaterally or bilaterally. Denied any history of venous thromboembolic disorder. This really is as much of the history of presentation as I have. I should also mention he denied fevers or chills. PAST MEDICAL HISTORY: Hypertension, diabetes. PAST SURGICAL HISTORY: He denied. MEDICATIONS: He was on at the time I stopped by to see him were reviewed. Pertinent medications include the following: He was on a D5 half NS drip via the DKA protocol. He was on hydralazine 10 mg IV q.6 hours p.r.n. elevated blood pressures. ALLERGIES: No known drug allergies. DIET: Well-built gentleman. Denies acute weight loss or gain in the preceding few weeks to months. FAMILY AND SOCIAL HISTORY: Lives in the community. Denies alcohol, tobacco, or illicit drug use or abuse. Denies prescription drug abuse. FAMILY HISTORY: Otherwise significant for diabetes and hypertension. REVIEW OF SYSTEMS: No loss of consciousness. No new onset seizures. Denies any significant weight loss or gain in the preceding few weeks to months. No ear pain, no discharge, no gross hematochezia or melena. No hematemesis. He did have the emesis. Denied any chest pains. Denied any heat or cold intolerance. Denied any new lumps, bumps, or swellings on his on his body. Denied any easy bruising. Denied any trouble with sinus allergies or pain. Complete 13-system review of systems was obtained. Pertinent positives and/or negatives as in body of history above, otherwise they are noncontributory. PHYSICAL EXAMINATION: VITAL SIGNS: At presentation, he was afebrile, temperature 98.1 degrees Fahrenheit with a pulse of 103, respiratory rate of 20, blood pressure 216/131, and oxygen sats were 96% at the time I saw him, he was on room air. GENERAL: Well-built elderly looking male, normocephalic, atraumatic, talking to me in full sentences without significant respiratory distress. HEAD, EYES, EARS, NOSE AND THROAT: He is anicteric. No conjunctival erythema. Oropharynx is a Mallampati #3 oropharynx. Oropharynx was moist. No gross jugular venous distention. Grossly, no palpable lymph nodes in the supraclavicular or submandibular lymph node chains. LUNGS: Auscultation of both lung alatorre was unremarkable. Lungs were clear at the time of my evaluation. ABDOMEN: Soft, full, bowel sounds are positive, mildly tender in the epigastric region. No gross hepatosplenomegaly. HEART: I should mention heart sounds 1 and 2 were heard. They were regular in rate and rhythm at the time of my evaluation. He did have a holosystolic murmur in the apical region. No rubs. EXTREMITIES: Without overt digital clubbing, cyanosis, or pedal edema. NEUROLOGIC: Pupils are equal, round, about 3 mm, sluggishly reactive to light. Extraocular muscle movements were intact. He had a post-surgical pupil on the right. He moved all 4 extremities spontaneously. The skin was of poor turgor; however, without any cellulitis or rash. Dorsalis pedis pulses were palpable bilaterally. LABORATORY DATA: From my review admission white cell count 18,000 with a hemoglobin of 16.7, hematocrit of 50.5, and platelet count of 254. No band forms. Venous blood gas showed a pH of 7.34. Serum sodium was 144, potassium 4.1, chloride 105, bicarbonate 22, BUN 42, creatinine of 3.0, glucose was 317. Lactic acid level was 5.3. Magnesium 2.8, AST elevated at 54, ALT within normal limits. Troponin within normal limits. Liver function tests otherwise within normal limits. Urinalysis was negative for nitrites and leukocyte esterase. He was spilling glucose in the urine. Urine drug screen was presumptive negative. No microbiology studies. A CT scan was done of the abdomen and pelvis. I have reviewed the report. No acute inflammatory process, mild cardiomegaly, mild bilateral perinephric stranding and scattered punctate renal stones with marked enlargement of the prostate gland. The lung windows I did review, degraded by motion artifact; however, no focal infiltrate or significant atelectasis or consolidation. ASSESSMENT AND PLAN: 1. Hypertensive urgency. 2. Diabetic ketoacidosis. 3. Sepsis syndrome. 4. History of medication noncompliance. 5. Leukocytosis, possibly due to an ascending pyelonephritis with the perinephric stranding visible on the CT abdomen. 6. Hemoconcentration. 7. Acute kidney injury. 8. Sepsis syndrome. 9. Mild metabolic acidosis. PLAN: He is doing better. We will transition him off IV insulin and begin long-acting insulin therapy. An oral diet will be resumed. Blood pressure is a little better, but remains elevated, I will schedule some oral hydralazine. I will otherwise defer to the associate professor of library science to choose blood pressure medications of the attending. I am bothered by the murmur that I do hear on the physical exam, I will order tentatively a 2D echocardiogram and see if there is any significant valvular disease. He will be placed on sliding scale insulin post stoppage of the IV insulin therapy. I will put him on Flomax for likely benign prostatic hyperplasia. We will pull Allison catheter and if he continues to retain, we will replace it get a Urology consult. Otherwise inpatient and outpatient Urology decisions will be left to the attending. He will be started on GI and DVT prophylaxis. A CRP level will be ordered to better understand the true infectious potential of this leukocytosis. I will get a prostate specific antigen level. We will get two sets of blood cultures, but hold on antibiotics. Actually I will begin him on Levaquin monotherapy after the cultures are drawn. We will deescalate antibiotics based on results of clinical and microbiologic data. As mentioned, he was started on GI and DVT prophylaxis. Flu and pneumonia vaccination will be started per protocol. Thank you very much for the consult Dr. Jang. We will follow along and make further recommendations as picture progresses/becomes clearer. He is critically ill, on life-sustaining interventions including the IV insulin therapy and vasoactive medications for the blood pressure, at risk for further deterioration including the deterioration in the renal and cardiac systems. At this time, I spent about 35-40 minutes of critical care time without overlap and excluding any procedural time that may be necessary. JOB# [id number] DIEGO/BENNY JOYCE
[2018-03-14 05:40] LABS: BUN/Creatinine Ratio 15; Blood Urea Nitrogen 15 mg/dL (9-20); Calcium 8.7 mg/dL (8.4-10.2); Hemolysis Index 13
[2018-03-14] MEDS: NACL 0.45% 1000 ML 1,000 ML IV SCH ×3 (06:19→22:57)
--- NOTE | 2018-03-14 08:26 | Progress Note ---
Assessment and Plan 1. Acute kidney injury: Likely Vasomotor / hemodynamic JAMARI in the setting of volume depletion. Real function is better. Continue IV fluids. Monitor. 2. Urinary retention: S/p thompson catheter. Elevated PSA. On Finasteride. 3. Electrolytes: Hyperkalemia, improved. Hypernatremia, 1/2 NS. 4. Hyperosmolar state: Improved. 5. Sepsis. 6. Uncontrolled HTN: BP is better. Subjective Date of service: 03/14/18 Interval history: Patient is doing good. Objective - Vital Signs Vital signs: Vital Signs - 12hr 03/13/18 03/13/18 03/13/18 21:17 21:18 21:50 Temperature 99.5 F Pulse Rate 95 H 96 H Respiratory 24 Rate Blood Pressure 180/78 180/78 O2 Sat by Pulse 97 Oximetry 03/13/18 03/13/18 03/14/18 22:00 23:11 06:07 Temperature 98.4 F 99.2 F Pulse Rate 91 H 82 Respiratory 18 19 Rate Blood Pressure 129/58 161/74 O2 Sat by Pulse 98 94 96 Oximetry - General Appearance General appearance: well-developed, well-nourished, appears stated age, other ( no distress) EENT: ATNC, PERRL, mucous membranes moist, hearing intact, vision intact Neck: supple Respiratory: Present: Clear to Ascultation Cardiology: regular, S1S2, no murmurs Gastrointestinal: normoactive bowel sounds, no tenderness, no distended Integumentary: no rash, warm and dry Neurologic: no asterixis, alert and oriented x3 Musculoskeletal: other (no edema) - Lab 03/12/18 12:29 03/14/18 05:00 Most recent lab results Calcium 8.7 mg/dL (8.4-10.2) 03/14/18 05:00 Phosphorus 2.70 mg/dL (2.5-4.5) 03/14/18 05:00 Magnesium 2.80 mg/dL (1.7-2.3) H 03/12/18 15:36
--- NOTE | 2018-03-14 08:34 | Progress Note ---
Assessment and Plan Patient alert, awake. resting on room air.O2 saturation 96%. No acute respiratory distress.Running low grade fever at times. - Patient Problems (1) ARF (acute renal failure) with tubular necrosis Current Visit: Yes Status: Acute Plan to address problem: Management as per nephrology. (2) DKA (diabetic ketoacidoses) Current Visit: Yes Status: Acute Qualifiers: Diabetes mellitus type: type 1 Plan to address problem: Improved. Mangement as per primary care. (3) Hypertensive urgency Current Visit: Yes Status: Acute Plan to address problem: Management as per primary care. (4) SIRS (systemic inflammatory response syndrome) Current Visit: Yes Status: Acute Plan to address problem: Improving. Subjective Date of service: 03/14/18 Interval history: Patient alert, awake. resting on room air.O2 saturation 96%. No acute respiratory distress.Running low grade fever at times. Objective Vital Signs - 12hr 03/13/18 03/13/18 03/13/18 21:17 21:18 21:50 Temperature 99.5 F Pulse Rate 95 H 96 H Respiratory 24 Rate Blood Pressure 180/78 180/78 O2 Sat by Pulse 97 Oximetry 03/13/18 03/13/18 03/14/18 22:00 23:11 06:07 Temperature 98.4 F 99.2 F Pulse Rate 91 H 82 Respiratory 18 19 Rate Blood Pressure 129/58 161/74 O2 Sat by Pulse 98 94 96 Oximetry Constitutional: no acute distress, alert Eyes: non-icteric ENT: oropharynx moist Neck: supple, no lymphadenopathy Ascultation: Bilateral: clear Cardiovascular: regular rate and rhythm Gastrointestinal: normoactive bowel sounds, soft, non-tender Integumentary: normal Extremities: no cyanosis, no edema Neurologic: normal mental status, non-focal exam, pupils equal and round, CN II- XII normal Psychiatric: mood appropriate CBC and BMP: 03/12/18 12:29 03/14/18 05:00 Abnormal lab findings: Abnormal Labs 03/12/18 03/12/18 03/12/18 12:29 12:29 12:29 WBC 18.0 H RBC 5.68 H Hgb 16.7 H Hct 50.5 H Lymph % (Auto) 7.7 L [place] # 1.1 H Seg Neutrophils % 85.7 H Seg Neutrophils # 15.4 H Sodium 135 L Potassium 5.1 H Chloride 95.7 L BUN 43 H Creatinine 3.4 H Glucose 608 H* POC Glucose Hemoglobin A1c Lactic Acid 3.00 H* Calcium 10.3 H Magnesium Direct Bilirubin 0.3 H AST 54 H Total Protein 8.5 H Prostate Specific Ag 03/12/18 03/12/18 03/12/18 13:08 14:11 15:31 WBC RBC Hgb Hct Lymph % (Auto) [place] # Seg Neutrophils % Seg Neutrophils # Sodium Potassium Chloride BUN Creatinine Glucose POC Glucose 300 H Hemoglobin A1c Lactic Acid 3.00 H* 3.20 H* Calcium Magnesium Direct Bilirubin AST Total Protein Prostate Specific Ag 03/12/18 03/12/18 03/12/18 15:36 15:36 15:36 WBC RBC Hgb Hct Lymph % (Auto) [place] # Seg Neutrophils % Seg Neutrophils # Sodium Potassium Chloride BUN Creatinine Glucose POC Glucose Hemoglobin A1c 9.4 H Lactic Acid 5.30 H* Calcium Magnesium 2.80 H Direct Bilirubin AST Total Protein Prostate Specific Ag 03/12/18 03/12/18 03/12/18 15:36 17:05 18:05 WBC RBC Hgb Hct Lymph % (Auto) [place] # Seg Neutrophils % Seg Neutrophils # Sodium Potassium Chloride BUN 42 H Creatinine 3.0 H Glucose 317 H POC Glucose 267 H 192 H Hemoglobin A1c Lactic Acid Calcium 10.8 H Magnesium Direct Bilirubin AST Total Protein Prostate Specific Ag 03/12/18 03/12/18 03/12/18 18:50 18:50 19:07 WBC RBC Hgb Hct Lymph % (Auto) [place] # Seg Neutrophils % Seg Neutrophils # Sodium 148 H Potassium [place] 109.7 H BUN 39 H Creatinine 2.5 H Glucose 144 H POC Glucose 142 H Hemoglobin A1c Lactic Acid 3.70 H* Calcium Magnesium Direct Bilirubin AST Total Protein Prostate Specific Ag 03/12/18 03/12/18 03/12/18 20:02 20:30 20:30 WBC RBC Hgb Hct Lymph % (Auto) [place] # Seg Neutrophils % Seg Neutrophils # Sodium 148 H Potassium [place] 111.9 H BUN 35 H Creatinine 2.2 H Glucose 113 H POC Glucose 116 H Hemoglobin A1c Lactic Acid 2.40 H* Calcium Magnesium Direct Bilirubin AST Total Protein Prostate Specific Ag 03/12/18 03/12/18 03/12/18 21:04 21:53 22:39 WBC RBC Hgb Hct Lymph % (Auto) [place] # Seg Neutrophils % Seg Neutrophils # Sodium 148 H Potassium [place] 113.2 H BUN 31 H Creatinine 1.8 H Glucose 167 H POC Glucose 107 H 129 H Hemoglobin A1c Lactic Acid Calcium Magnesium Direct Bilirubin AST Total Protein Prostate Specific Ag 03/12/18 03/13/18 03/13/18 23:30 03:26 03:55 WBC RBC Hgb Hct Lymph % (Auto) [place] # Seg Neutrophils % Seg Neutrophils # Sodium Potassium Chloride BUN Creatinine Glucose POC Glucose 176 H 227 H Hemoglobin A1c Lactic Acid 5.40 H* Calcium Magnesium Direct Bilirubin AST Total Protein Prostate Specific Ag 03/13/18 03/13/18 03/13/18 05:01 05:22 06:59 WBC RBC Hgb Hct Lymph % (Auto) [place] # Seg Neutrophils % Seg Neutrophils # Sodium 149 H Potassium Ch[place] 113.9 H BUN 26 H Creatinine Glucose 262 H POC Glucose 231 H 178 H Hemoglobin A1c Lactic Acid Calcium Magnesium Direct Bilirubin AST Total Protein Prostate Specific Ag 03/13/18 03/13/18 03/13/18 08:14 09:01 09:57 WBC RBC Hgb Hct Lymph % (Auto) [place] # Seg Neutrophils % Seg Neutrophils # Sodium Potassium Chloride BUN Creatinine Glucose POC Glucose 134 H 115 H 112 H Hemoglobin A1c Lactic Acid Calcium Magnesium Direct Bilirubin AST Total Protein Prostate Specific Ag 03/13/18 03/13/18 03/13/18 10:12 11:28 17:11 WBC RBC Hgb Hct Lymph % (Auto) [place] # Seg Neutrophils % Seg Neutrophils # Sodium Potassium Chloride BUN Creatinine Glucose POC Glucose 139 H 248 H Hemoglobin A1c Lactic Acid Calcium Magnesium Direct Bilirubin AST Total Protein Prostate Specific Ag 6.08 H 03/13/18 03/13/18 03/14/18 18:33 20:50 05:00 WBC RBC Hgb Hct Lymph % (Auto) [place] # Seg Neutrophils % Seg Neutrophils # Sodium Potassium [place] 109.4 H BUN Creatinine Glucose 196 H POC Glucose 318 H Hemoglobin A1c Lactic Acid Calcium Magnesium Direct Bilirubin AST Total Protein Prostate Specific Ag 5.62 H 03/14/18 07:55 WBC RBC Hgb Hct Lymph % (Auto) [place] # Seg Neutrophils % Seg Neutrophils # Sodium Potassium Chloride BUN Creatinine Glucose POC Glucose 201 H Hemoglobin A1c Lactic Acid Calcium Magnesium Direct Bilirubin AST Total Protein Prostate Specific Ag Chest x-ray: report reviewed (Mild cardiomegaly, lungs clear.), image reviewed
[2018-03-14] MEDS: HumaLOG SUB-Q SCH ×4 (08:41→22:58)
[2018-03-14] MEDS: DIOVAN PO SCH (09:43)
[2018-03-14] MEDS: PROCARDIA XL PO SCH ×2 (09:44→22:57)
[2018-03-14] MEDS: PROSCAR PO SCH (09:45)
[2018-03-14] MEDS: FLOMAX PO SCH (09:47)
[2018-03-14] MEDS: LOVENOX SUB-Q SCH (09:47)
[2018-03-14] MEDS ORDERED: LANTUS SUB-Q ONE (12:00)
[2018-03-14] MEDS: APRESOLINE IV PRN (12:03)
--- NOTE | 2018-03-14 12:25 | Progress Note ---
Assessment and Plan Assessment and plan: my stomach hurts History of present illness: 62 YO Male with HTN,DM presents to ED for evaluation. Pt states that he has experienced generalized abdominal pain over the past 1 day, with persistent symptoms over the same time frame. Pt also acknowledges nausea, multiple episodes of vomiting, polydipsia, and polyuria. Pt denies fever, chills, CP, Palpitations, Trauma, BRBPR, productive cough, skin rash or recent ill contacts. Pt seen and evaluated in ED and found to have evidence of Sepsis, DKA , Acidosis, Acute Renal Failure, as well Accelerated Hypertension. Pt also found to have urinary retention, which was resolved with placement of thompson catheter with return of 1400cc of urine. Pt admitted to ICU and initiated on Sepsis, and DKA protocols. Past History Past Medical History: diabetes, hypertension Sepsis ruled out, w/o negative Obstructive uropathy due to enlarged prostate -keep thompson in place, PSA elevated, discussed concern for prostate ca, outpatient urology fup -urology consult appreciated, will be dc with thompson cath, and fup outpatient for urodynamics started flomax and finasteride ARF (acute renal failure) with acute tubular stasis -continue thompson, continue IVF, resolving DKA (diabetic ketoacidoses) transitioned to Sq insulins, a1c was 9 Hypertensive urgency, malignant optimize BP meds Hypernatremia resolved with hypotonic IVF History Interval history: Review of systems Constitutional: No fevers, no malaise, no joint pains CVS: No chest pain, no orthopnea, no dyspnea on exertion, no pedal edema GI: No abdominal pain, no diarrhea, no vomiting, no constipation Respiratory: No shortness of breath, no wheezing, no coughing Hospitalist Physical - Physical exam Narrative exam: General.: Appears well, no distress, nontoxic HEENT: Moist mucous membranes, extraocular muscles intact, no lymphadenopathy Neck: supple Cardiac: S1-S2 heard Lungs: clear to auscultation bilaterally Abdomen: soft , nontender, nondistended, bowel sounds positive Extremities: no edema clubbing or cyanosis Skin: no rash or lesions Neurologic: no gross focal deficits Psych: appropriate behavior, appropriate mood, corporative, judgment intact - Constitutional Vitals: Temp Pulse Resp BP Pulse Ox 99.2 F 101 H 19 183/78 96 03/14/18 06:07 03/14/18 12:03 03/14/18 06:07 03/14/18 12:03 03/14/18 06:07 General appearance: Present: mild distress Results - Labs CBC & Chem 7: 03/12/18 12:29 03/14/18 05:00 Labs: Laboratory Last Values WBC 18.0 K/mm3 (4.5-11.0) H 03/12/18 12:29 RBC 5.68 M/mm3 (3.65-5.03) H 03/12/18 12:29 Hgb 16.7 gm/dl (11.8-15.2) H 03/12/18 12:29 Hct 50.5 % (35.5-45.6) H 03/12/18 12: MCV 89 fl (84-94) 03/12/18 12: MCH 29 pg (28-32) 03/12/18 12: MCHC 33 % (32-34) 03/12/18 12: RDW 14.3 % (13.2-15.2) 03/12/18 12:29 Plt Count 254 K/mm3 (140-440) 03/12/18 12: Lymph % (Auto) 7.7 % (13.4-35.0) L 03/12/18 12: [place] % (Auto) 6.3 % (0.0-7.3) 03/12/18 12: Eos % (Auto) 0.0 % (0.0-4.3) 03/12/18 12: Baso % (Auto) 0.3 % (0.0-1.8) 03/12/18 12: Lymph # 1.4 K/mm3 (1.2-5.4) 03/12/18 12:29 [place] # 1.1 K/mm3 (0.0-0.8) H 03/12/18 12:29 Eos # 0.0 K/mm3 (0.0-0.4) 03/12/18 12:29 Baso # 0.1 K/mm3 (0.0-0.1) 03/12/18 12:29 Seg Neutrophils % 85.7 % (40.0-70.0) H 03/12/18 12:29 Seg Neutrophils # 15.4 K/mm3 (1.8-7.7) H 03/12/18 12:29 VBG pH 7.343 (7.320-7.420) 03/12/18 13:45 Sodium 144 mmol/L (137-145) 03/14/18 05:00 Potassium 3.9 mmol/L (3.6-5.0) 03/14/18 05:00 Chloride 109.4 mmol/L (98-107) H 03/14/18 05:00 Carbon Dioxide 24 mmol/L (22-30) 03/14/18 05:00 Anion Gap 15 mmol/L 03/14/18 05:00 BUN 15 mg/dL (9-20) 03/14/18 05:00 Creatinine 1.0 mg/dL (0.8-1.5) 03/14/18 05:00 Estimated GFR > 60 ml/min 03/14/18 05:00 BUN/Creatinine Ratio 15 % 03/14/18 05:00 Glucose 196 mg/dL (75-100) H 03/14/18 05:00 POC Glucose 201 (70-105) H 03/14/18 07:55 Hemoglobin A1c 9.4 % (4-6) H 03/12/18 15:36 Lactic Acid 1.50 mmol/L (0.7-2.0) 03/13/18 05:20 Calcium 8.7 mg/dL (8.4-10.2) 03/14/18 05:00 Phosphorus 2.70 mg/dL (2.5-4.5) 03/14/18 05:00 Magnesium 2.80 mg/dL (1.7-2.3) H 03/12/18 15:36 Total Bilirubin 0.90 mg/dL (0.1-1.2) 03/12/18 12:29 Direct Bilirubin 0.3 mg/dL (0-0.2) H 03/12/18 12:29 Indirect Bilirubin 0.6 mg/dL 03/12/18 12:29 AST 54 units/L (5-40) H 03/12/18 12:29 ALT 22 units/L (7-56) 03/12/18 12:29 Alkaline Phosphatase 103 units/L (35-129) 03/12/18 12:29 Troponin T < 0.010 ng/mL (0.00-0.029) 03/12/18 12:29 C-Reactive Protein 0.90 mg/dL (0.00-1.30) 03/13/18 18:33 Total Protein 8.5 g/dL (6.3-8.2) H 03/12/18 12:29 Albumin 4.5 g/dL (3.9-5) 03/12/18 12:29 Albumin/Globulin Ratio 1.1 % 03/12/18 12:29 Lipase 13 units/L (13-60) 03/12/18 12:29 Prostate Specific Ag 5.62 ng/mL (0.00-4.00) H 03/13/18 18:33 Urine Color Yellow (Yellow) 03/12/18 13:51 Urine Turbidity Clear (Clear) 03/12/18 13:51 Urine pH 5.0 (5.0-7.0) 03/12/18 13:51 Ur Specific [place] 1.017 (1.003-1.030) 03/12/18 13:51 Urine Protein <15 mg/dl mg/dL (Negative) 03/12/18 13:51 Urine Glucose (UA) >=500 mg/dL (Negative) 03/12/18 13:51 Urine Ketones Neg mg/dL (Negative) 03/12/18 13:51 Urine Blood Neg (Negative) 03/12/18 13:51 Urine Nitrite Neg (Negative) 03/12/18 13:51 Urine Bilirubin Neg (Negative) 03/12/18 13:51 Urine Urobilinogen < 2.0 mg/dL (<2.0) 03/12/18 13:51 Ur Leukocyte Esterase Neg (Negative) 03/12/18 13:51 Urine WBC (Auto) < 1.0 /HPF (0.0-6.0) 03/12/18 13:51 Urine RBC (Auto) 1.0 /HPF (0.0-6.0) 03/12/18 13:51 U Epithel Cells (Auto) < 1.0 /HPF (0-13.0) 03/12/18 13:51 Urine Bacteria (Auto) 1+ /HPF (Negative) 03/12/18 13:51 Urine Mucus Few /HPF 03/12/18 13:51 Urine Opiates Screen Presumptive negative 03/12/18 19:54 Urine Methadone Screen Presumptive negative 03/12/18 19:54 Ur Barbiturates Screen Presumptive negative 03/12/18 19:54 Ur Phencyclidine Scrn Presumptive negative 03/12/18 19:54 Ur Amphetamines Screen Presumptive negative 03/12/18 19:54 U Benzodiazepines Scrn Presumptive negative 03/12/18 19:54 Urine Cocaine Screen Presumptive negative 03/12/18 19:54 U Marijuana (THC) Screen Presumptive negative 03/12/18 19:54 Drugs of Abuse Note Disclamer 03/12/18 19:54
[2018-03-14] MEDS: SODIUM CHLORIDE FLUSH SYRINGE 10 ML IV SCH ×2 (13:54→22:59)
[2018-03-14] MEDS: NORMODYNE PO SCH ×2 (14:12→22:57)
[2018-03-14] MEDS ORDERED: LANTUS SUB-Q SCH (22:00)
[2018-03-15 05:03] LABS: Basophils % (Auto) 0.4 % (0.0-1.8); Eosinophils # (Auto) 0.3 K/mm3 (0.0-0.4); Eosinophils % (Auto) 2.9 % (0.0-4.3); Hematocrit 43.5 % (35.5-45.6); Hemoglobin 14.8 gm/dl (11.8-15.2); Lymphocytes # (Auto) 2.5 K/mm3 (1.2-5.4); Mean Corpuscular HGB Conc 34 % (32-34); Mean Corpuscular Hemoglobin 30 pg (28-32); Mean Corpuscular Volume 88 fl (84-94); Monocytes # (Auto) 0.6 K/mm3 (0.0-0.8); Monocytes % (Auto) 7.3 % (0.0-7.3); Platelet Count 213 K/mm3 (140-440); Red Blood Count 4.97 M/mm3 (3.65-5.03)
[2018-03-15 05:43] LABS: BUN/Creatinine Ratio 13; Blood Urea Nitrogen 12 mg/dL (9-20); Calcium 8.4 mg/dL (8.4-10.2); Hemolysis Index 5
[2018-03-15] MEDS: NACL 0.45% 1000 ML 1,000 ML IV SCH (06:22)
[2018-03-15] MEDS: HumaLOG SUB-Q SCH ×3 (08:25→18:09)
[2018-03-15] MEDS: DIOVAN PO SCH (10:45)
[2018-03-15 10:46] VITALS: BP 151/78
[2018-03-15] MEDS: PROSCAR PO SCH (10:46)
[2018-03-15] MEDS: NORMODYNE PO SCH (10:46)
[2018-03-15] MEDS: FLOMAX PO SCH (10:46)
[2018-03-15] MEDS: PROCARDIA XL PO SCH (10:46)
[2018-03-15] MEDS: SODIUM CHLORIDE FLUSH SYRINGE 10 ML IV SCH (10:47)
[2018-03-15] MEDS: LOVENOX SUB-Q SCH (10:47)
--- NOTE | 2018-03-15 14:00 | Discharge Summary ---
Providers - Providers Date of Admission: 03/12/18 15:10 Attending physician: NETTA GARCIA MD 03/12/18 15:20 Consult to Physician [CONS] Routine Comment: DR MATTHEWS NOTIFIED [id number] Consulting Provider: MOSES MATTHEWS Physician Instructions: Reason For Exam: arf 03/13/18 09:15 Consult to Physician [CONS] Routine Comment: Consulting Provider: CARLI CARDENAS Physician Instructions: Reason For Exam: critical care 03/13/18 11:20 Consult to Physician [CONS] Routine Comment: Consulting Provider: CHRIS MCKNIGHT Physician Instructions: Reason For Exam: urinary retention Primary care physician: HEAD BANQUET WAITER/WAITRESS Hospitalization Condition: Serious Hospital course: my stomach hurts History of present illness: 62 YO Male with HTN,DM presents to ED for evaluation. Pt states that he has experienced generalized abdominal pain over the past 1 day, with persistent symptoms over the same time frame. Pt also acknowledges nausea, multiple episodes of vomiting, polydipsia, and polyuria. Pt denies fever, chills, CP, Palpitations, Trauma, BRBPR, productive cough, skin rash or recent ill contacts. Pt seen and evaluated in ED and found to have evidence of Sepsis, DKA , Acidosis, Acute Renal Failure, as well Accelerated Hypertension. Pt also found to have urinary retention, which was resolved with placement of thompson catheter with return of 1400cc of urine. Pt admitted to ICU and initiated on Sepsis, and DKA protocols. Past History Past Medical History: diabetes, hypertension Sepsis ruled out, w/o negative Obstructive uropathy due to enlarged prostate -keep thompson in place, PSA elevated, discussed concern for prostate ca, outpatient urology fup -urology consult appreciated, will be dc with thompson cath, and fup outpatient for urodynamics started flomax and finasteride ARF (acute renal failure) with acute tubular stasis -continue thompson, continue IVF, resolving DKA (diabetic ketoacidoses) transitioned to Sq insulins, a1c was 9 Hypertensive urgency, malignant optimize BP meds Hypernatremia resolved with hypotonic IVF Disposition: DC-01 TO HOME OR SELFCARE Time spent for discharge: 33 minutes Core Measure Documentation - Palliative Care Palliative Care/ Comfort Measures: Not Applicable - Core Measures Any of the following diagnoses?: none Exam - Constitutional Vitals: Temp Pulse Resp BP Pulse Ox 98.6 F 79 18 151/78 97 03/15/18 06:13 03/15/18 10:45 03/15/18 06:13 03/15/18 10:45 03/15/18 06:13 General appearance: Present: no acute distress, well-nourished - EENT Eyes: Present: PERRL ENT: hearing intact, clear oral mucosa - Neck Neck: Present: supple, normal ROM - Respiratory Respiratory effort: normal Respiratory: bilateral: CTA - Cardiovascular Heart Sounds: Present: S1 & S2. Absent: rub, click - Extremities Extremities: pulses symmetrical, No edema Peripheral Pulses: within normal limits - Abdominal General gastrointestinal: Present: soft, non-tender, non-distended, normal bowel sounds Male genitourinary: Present: normal - Integumentary Integumentary: Present: clear, warm, dry - Musculoskeletal Musculoskeletal: gait normal, strength equal bilaterally - Psychiatric Psychiatric: appropriate mood/affect, intact judgment & insight - Neurologic Neurologic: CNII-XII intact, moves all extremities Plan Follow up with: PRIMARY CARE,MD [Primary Care Provider] - 7 Days Prescriptions: Insulin Glargine [Lantus VIAL] 30 units SUB-Q QHS #1 vial Finasteride [Proscar] 5 mg PO QDAY #30 tablet Labetalol [Normodyne TAB] 200 mg PO BID #60 tablet metFORMIN [Glucophage] 850 mg PO BID #60 tablet NIFEdipine XL [Procardia Xl] 60 mg PO Q12HR #60 tablet Syringe and Needle,Insulin,1Ml [Advocate Syringes] 1 each HS #120 disp.syrin Tamsulosin [Flomax] 0.4 mg PO QDAY #30 capsule Valsartan [Diovan] 320 mg PO DAILY 30 Days tablet
--- NOTE | 2018-03-15 14:45 | Progress Note ---
Assessment and Plan Hypertensive urgency. Diabetic ketoacidosis. Sepsis syndrome. History of medication noncompliance. Leukocytosis (? ascending pyelonephritis) Hemoconcentration. Acute kidney injury. Sepsis syndrome. Mild metabolic acidosis. Subjective Date of service: 03/15/18 Principal diagnosis: Hypertensive urgency; Diabetic ketoacidosis; Sepsis syndrome; Leukocytosis Interval history: Patient is seen today for: Hypertensive urgency; Diabetic ketoacidosis; Sepsis syndrome; Leukocytosis (? ascending pyelonephritis) Seen and examined at bedside; 24hour events reviewed; nursing and respiratory care staff consulted; no adverse overnight events reported to me; Objective Vital Signs - 12hr 03/15/18 03/15/18 06:13 10:45 Temperature 98.6 F Pulse Rate 73 79 Respiratory 18 Rate Blood Pressure 156/80 151/78 O2 Sat by Pulse 97 Oximetry Constitutional: no acute distress, alert Eyes: non-icteric ENT: oropharynx moist Neck: supple, no lymphadenopathy Ascultation: Bilateral: clear Cardiovascular: regular rate and rhythm Gastrointestinal: normoactive bowel sounds, soft, non-tender Integumentary: normal Extremities: no cyanosis, no edema Neurologic: normal mental status, non-focal exam, pupils equal and round, CN II- XII normal Psychiatric: mood appropriate CBC and BMP: 03/15/18 03:57 03/15/18 03:57 Abnormal lab findings: Abnormal Labs 03/12/18 03/12/18 03/12/18 12:29 12:29 12:29 WBC 18.0 H RBC 5.68 H Hgb 16.7 H Hct 50.5 H Lymph % (Auto) 7.7 L Woodward # 1.1 H Seg Neutrophils % 85.7 H Seg Neutrophils # 15.4 H Sodium 135 L Potassium 5.1 H Chloride 95.7 L BUN 43 H Creatinine 3.4 H Glucose 608 H* POC Glucose Hemoglobin A1c Lactic Acid 3.00 H* Calcium 10.3 H Magnesium Direct Bilirubin 0.3 H AST 54 H Total Protein 8.5 H Prostate Specific Ag 03/12/18 03/12/18 03/12/18 13:08 14:11 15:31 WBC RBC Hgb Hct Lymph % (Auto) Woodward # Seg Neutrophils % Seg Neutrophils # Sodium Potassium Chloride BUN Creatinine Glucose POC Glucose 300 H Hemoglobin A1c Lactic Acid 3.00 H* 3.20 H* Calcium Magnesium Direct Bilirubin AST Total Protein Prostate Specific Ag 03/12/18 03/12/18 03/12/18 15:36 15:36 15:36 WBC RBC Hgb Hct Lymph % (Auto) [place] # Seg Neutrophils % Seg Neutrophils # Sodium Potassium Chloride BUN Creatinine Glucose POC Glucose Hemoglobin A1c 9.4 H Lactic Acid 5.30 H* Calcium Magnesium 2.80 H Direct Bilirubin AST Total Protein Prostate Specific Ag 03/12/18 03/12/18 03/12/18 15:36 17:05 18:05 WBC RBC Hgb Hct Lymph % (Auto) [place] # Seg Neutrophils % Seg Neutrophils # Sodium Potassium Chloride BUN 42 H Creatinine 3.0 H Glucose 317 H POC Glucose 267 H 192 H Hemoglobin A1c Lactic Acid Calcium 10.8 H Magnesium Direct Bilirubin AST Total Protein Prostate Specific Ag 03/12/18 03/12/18 03/12/18 18:50 18:50 19:07 WBC RBC Hgb Hct Lymph % (Auto) [place] # Seg Neutrophils % Seg Neutrophils # Sodium 148 H Potassium Chloride 109.7 H BUN 39 H Creatinine 2.5 H Glucose 144 H POC Glucose 142 H Hemoglobin A1c Lactic Acid 3.70 H* Calcium Magnesium Direct Bilirubin AST Total Protein Prostate Specific Ag 03/12/18 03/12/18 03/12/18 20:02 20:30 20:30 WBC RBC Hgb Hct Lymph % (Auto) [place] # Seg Neutrophils % Seg Neutrophils # Sodium 148 H Potassium Chloride 111.9 H BUN 35 H Creatinine 2.2 H Glucose 113 H POC Glucose 116 H Hemoglobin A1c Lactic Acid 2.40 H* Calcium Magnesium Direct Bilirubin AST Total Protein Prostate Specific Ag 03/12/18 03/12/18 03/12/18 21:04 21:53 22:39 WBC RBC Hgb Hct Lymph % (Auto) [place] # Seg Neutrophils % Seg Neutrophils # Sodium 148 H Potassium Chloride 113.2 H BUN 31 H Creatinine 1.8 H Glucose 167 H POC Glucose 107 H 129 H Hemoglobin A1c Lactic Acid Calcium Magnesium Direct Bilirubin AST Total Protein Prostate Specific Ag 03/12/18 03/13/18 03/13/18 23:30 03:26 03:55 WBC RBC Hgb Hct Lymph % (Auto) [place] # Seg Neutrophils % Seg Neutrophils # Sodium Potassium Chloride BUN Creatinine Glucose POC Glucose 176 H 227 H Hemoglobin A1c Lactic Acid 5.40 H* Calcium Magnesium Direct Bilirubin AST Total Protein Prostate Specific Ag 03/13/18 03/13/18 03/13/18 05:01 05:22 06:59 WBC RBC Hgb Hct Lymph % (Auto) [place] # Seg Neutrophils % Seg Neutrophils # Sodium 149 H Potassium Chloride 113.9 H BUN 26 H Creatinine Glucose 262 H POC Glucose 231 H 178 H Hemoglobin A1c Lactic Acid Calcium Magnesium Direct Bilirubin AST Total Protein Prostate Specific Ag 03/13/18 03/13/18 03/13/18 08:14 09:01 09:57 WBC RBC Hgb Hct Lymph % (Auto) [place] # Seg Neutrophils % Seg Neutrophils # Sodium Potassium Chloride BUN Creatinine Glucose POC Glucose 134 H 115 H 112 H Hemoglobin A1c Lactic Acid Calcium Magnesium Direct Bilirubin AST Total Protein Prostate Specific Ag 03/13/18 03/13/18 03/13/18 10:12 11:28 17:11 WBC RBC Hgb Hct Lymph % (Auto) [place] # Seg Neutrophils % Seg Neutrophils # Sodium Potassium Chloride BUN Creatinine Glucose POC Glucose 139 H 248 H Hemoglobin A1c Lactic Acid Calcium Magnesium Direct Bilirubin AST Total Protein Prostate Specific Ag 6.08 H 03/13/18 03/13/18 03/14/18 18:33 20:50 05:00 WBC RBC Hgb Hct Lymph % (Auto) [place] # Seg Neutrophils % Seg Neutrophils # Sodium Potassium Chloride 109.4 H BUN Creatinine Glucose 196 H POC Glucose 318 H Hemoglobin A1c Lactic Acid Calcium Magnesium Direct Bilirubin AST Total Protein Prostate Specific Ag 5.62 H 03/14/18 03/14/18 03/14/18 07:55 11:51 16:55 WBC RBC Hgb Hct Lymph % (Auto) [place] # Seg Neutrophils % Seg Neutrophils # Sodium Potassium Chloride BUN Creatinine Glucose POC Glucose 201 H 228 H 257 H Hemoglobin A1c Lactic Acid Calcium Magnesium Direct Bilirubin AST Total Protein Prostate Specific Ag 03/14/18 03/15/18 03/15/18 21:33 03:57 11:30 WBC RBC Hgb Hct Lymph % (Auto) [place] # Seg Neutrophils % Seg Neutrophils # Sodium Potassium 3.3 L Chloride 107.1 H BUN Creatinine Glucose 136 H POC Glucose 237 H 232 H Hemoglobin A1c Lactic Acid Calcium Magnesium Direct Bilirubin AST Total Protein Prostate Specific Ag
== END 2018-03-15 18:56 | disposition home or self-care (01) | DRG 682 ==
LOC: ED 10:25 → CC1 15:10 → 3A 03-13 15:35
PROVIDERS: ADMIT Internal Medicine; ATTEND Internal Medicine
DX: N17.0 Acute kidney failure with tubular necrosis (principal); E10.10 Type 1 diabetes mellitus with ketoacidosis without coma; E87.0 Hyperosmolality and hypernatremia; R65.10 Systemic inflammatory response syndrome (SIRS) of non-infectious origin without acute organ dysfunction; K59.00 Constipation, unspecified; I10 Essential (primary) hypertension; Z79.84 Long term (current) use of oral hypoglycemic drugs; I16.0 Hypertensive urgency; R33.9 Retention of urine, unspecified; Z83.3 Family history of diabetes mellitus; Z82.49 Family history of ischemic heart disease and other diseases of the circulatory system; E87.5 Hyperkalemia; N13.9 Obstructive and reflux uropathy, unspecified; N40.0 Benign prostatic hyperplasia without lower urinary tract symptoms; N20.0 Calculus of kidney
CPT/HCPCS: 36415; 51702; 71045; 74019; 74176; 80048; 80074; 80307; 81001; 82140; 82805; 82962; 83036; 83690; 83735; 84100; 84153; 84154; 84484; 85025; 86140; 87040; 93005; 93010; 93306; 96374; 96375; 96376; J0360; J1650; J1815; J2270; J2405; J2543; J3370; J7030; J7040; J7050

== ENCOUNTER 2021-10-29 13:32 | Emergency (ER) | payer OTHER ==
--- NOTE | 2021-10-29 14:20 | Emergency Department Report ---
ED General Adult HPI - General Chief complaint: Urogenital-Female Stated complaint: REMOVE CATHER Time Seen by Provider: 10/29/21 14:11 Source: patient Mode of arrival: Ambulatory Limitations: No Limitations - History of Present Illness Initial comments: Patient is 68 years old male with history of benign prostatic hypertrophy according to the patient history. Patient brought to the emergency room via EMS from home for evaluation of possible urinary retention. Patient is coming with significant suprapubic pain and distention. Patient had a Allison catheter placed by Dr. Bey last Saturday. There is blood clots in the catheter and there is no drainage. Catheter immediately removed. -: days(s) Severity scale (0 -10): 10 - Related Data Previous Rx's Medication Instructions Recorded Last Taken Type Finasteride [Proscar] 5 mg PO QDAY #30 tablet 03/15/18 Unknown Rx Insulin Glargine [Lantus VIAL] 30 units SUB-Q QHS #1 vial 03/15/18 Unknown Rx Insulin Lispro [HumaLOG VIAL] 0 units SQ AC #1 vial 03/15/18 Unknown Rx NIFEdipine XL [Procardia Xl] 60 mg PO Q12HR #60 tablet 03/15/18 Unknown Rx Syringe and Needle,Insulin,1Ml 1 each HS #120 disp.syrin 03/15/18 Unknown Rx [Advocate Syringes] Tamsulosin [Flomax] 0.4 mg PO QDAY #30 capsule 03/15/18 Unknown Rx Valsartan [Diovan] 320 mg PO DAILY 30 Days tablet 03/15/18 Unknown Rx labetaloL [Labetalol 200mg TAB] 200 mg PO BID #60 tablet 03/15/18 Unknown Rx metFORMIN [Glucophage] 850 mg PO BID #60 tablet 03/15/18 Unknown Rx Allergies Allergy/AdvReac Type Severity Reaction Status Date / Time No Known Allergies Allergy Unverified 03/12/18 10:48 ED Review of Systems ROS: Stated complaint: REMOVE CATHER Other details as noted in HPI Comment: All other systems reviewed and negative Constitutional: denies: chills, fever Respiratory: denies: cough, shortness of breath, SOB with exertion Cardiovascular: denies: chest pain, palpitations Gastrointestinal: abdominal pain. denies: nausea, vomiting, diarrhea, constipation, hematemesis, melena, hematochezia Musculoskeletal: denies: back pain Neurological: denies: headache, weakness, numbness, paresthesias, confusion ED Past Medical Hx - Past Medical History Previous Medical History?: Yes Hx Hypertension: Yes Hx Congestive Heart Failure: No Hx Diabetes: No Hx Asthma: No Hx COPD: No Additional medical history: Allison cath. Enlarged prostate - Surgical History Past Surgical History?: Yes - Social History Smoking Status: Never Smoker - Medications Home Medications: Home Medications Medication Instructions Recorded Confirmed Last Taken Type Finasteride [Proscar] 5 mg PO QDAY #30 tablet 03/15/18 Unknown Rx Insulin Glargine [Lantus VIAL] 30 units SUB-Q QHS #1 vial 03/15/18 Unknown Rx Insulin Lispro [HumaLOG VIAL] 0 units SQ AC #1 vial 03/15/18 Unknown Rx NIFEdipine XL [Procardia Xl] 60 mg PO Q12HR #60 tablet 03/15/18 Unknown Rx Syringe and Needle,Insulin,1Ml 1 each MC HS #120 disp.syrin 03/15/18 Unknown Rx [Advocate Syringes] Tamsulosin [Flomax] 0.4 mg PO QDAY #30 capsule 03/15/18 Unknown Rx Valsartan [Diovan] 320 mg PO DAILY 30 Days tablet 03/15/18 Unknown Rx labetaloL [Labetalol 200mg TAB] 200 mg PO BID #60 tablet 03/15/18 Unknown Rx metFORMIN [Glucophage] 850 mg PO BID #60 tablet 03/15/18 Unknown Rx ED Physical Exam - General Limitations: No Limitations General appearance: alert, in distress (pain) - Head Head exam: Present: atraumatic, normocephalic, normal inspection - Eye Eye exam: Present: normal appearance - ENT ENT exam: Present: normal exam, normal orophraynx, mucous membranes moist - Neck Neck exam: Present: normal inspection, full ROM. Absent: tenderness, meningismus - Respiratory Respiratory exam: Present: normal lung sounds bilaterally - Cardiovascular Cardiovascular Exam: Present: regular rate, normal rhythm, normal heart sounds - GI/Abdominal GI/Abdominal exam: Present: soft, distended (Suprapubic.), tenderness (Suprapubic.), normal bowel sounds. Absent: guarding, rebound, rigid, organomegaly, mass, bruit, pulsatile mass, hernia - exam: Absent: testicular tenderness, circumcision External exam: Present: normal external exam. Absent: erythema, swelling, lesions, lacerations, ecchymosis - Extremities Exam Extremities exam: Present: normal inspection, normal capillary refill. Absent: tenderness - Back Exam Back exam: Present: normal inspection, full ROM. Absent: CVA tenderness (R), CVA tenderness (L) - Neurological Exam Neurological exam: Present: alert, oriented X3, CN II-XII intact, normal gait, reflexes normal. Absent: motor sensory deficit - Psychiatric Psychiatric exam: Present: normal mood - Skin Skin exam: Present: warm, intact, normal color ED Course Vital Signs 10/29/21 14:01 Temperature 98.3 F Pulse Rate 101 H Respiratory 24 Rate Blood Pressure 156/96 [Right] O2 Sat by Pulse 99 Oximetry ED Medical Decision Making - Lab Data Result diagrams: 10/29/21 15:16 10/29/21 15:16 - Medical Decision Making Patient is 68 years old male with history of benign prostatic hypertrophy according to the patient history. Patient brought to the emergency room via EMS from home for evaluation of possible urinary retention. Patient is coming with significant suprapubic pain and distention. Patient had a Allison catheter placed by Dr. Bey last Saturday. There is blood clots in the catheter and there is no drainage. Catheter immediately removed. New catheter placed. Irrigation and continue using a Neal drip. No clots are seen anymore. Bladder scan now is 0. Labs reviewed and is unremarkable. Patient stated that he is feeling much better. Patient advised to follow-up with Dr. Bey in the next 2 to 3 days and to return to the ER if he develop any new symptoms. Critical care attestation.: If time is entered above; I have spent that time in minutes in the direct care of this critically ill patient, excluding procedure time. ED Disposition Clinical Impression: Acute retention of urine, Allison catheter problem Disposition: HOME / SELF CARE / HOMELESS Is pt being admited?: No Condition: Stable Instructions: Acute Urinary Retention, Male Referrals: CHRIS BEY MD [Staff Physician] - 3-5 Days
[2021-10-29] MEDS ORDERED: SODIUM CHLORIDE IRRI 500 ML 1,000 ML IR ONE (14:28)
[2021-10-29 16:07] LABS: BUN/Creatinine Ratio 14; Blood Urea Nitrogen 18 mg/dL (9-20); Calcium 10.5 mg/dL (8.4-10.2); Hemolysis Index 11
[2021-10-29 16:17] LABS: Basophils % (Auto) 0.3 % (0.0-1.8); Eosinophils % (Auto) 0.2 % (0.0-4.3); Hematocrit 46.2 % (35.5-45.6); Hemoglobin 15.6 gm/dl (11.8-15.2); Lymphocytes # (Auto) 1.7 K/mm3 (1.2-5.4); Mean Corpuscular HGB Conc 34 % (32-34); Mean Corpuscular Volume 89 fl (84-94); Monocytes # (Auto) 0.6 K/mm3 (0.0-0.8); Monocytes % (Auto) 5.7 % (0.0-7.3); Platelet Count 239 K/mm3 (140-440); Red Cell Distribution Width 14.1 % (13.2-15.2)
[2021-10-29 16:25] LABS: Bilirubin,Urine NEG (Negative); Blood,Urine LG (Negative); Color,Urine Red (Yellow)
[2021-10-29 16:29] LABS: RBC,Urine > 182.0 /HPF (0.0-6.0)
[2021-10-29] MEDS: INSULIN REGULAR, HUMAN 100 UNITS/1 ML IV ONE (16:30)
[2021-10-29] MEDS: MORPHINE 4 MG/1 ML INJ IV ONE (16:30)
[2021-10-29] MEDS: ONDANSETRON 4 MG/2 ML INJ IV ONE (16:30)
[2021-10-29] MEDS ORDERED: MORPHINE 4 MG/1 ML INJ ONE (16:36)
[2021-10-29] MEDS ORDERED: ONDANSETRON 4 MG/2 ML INJ ONE (16:36)
[2021-10-29 17:57] VITALS: BP 180/93
== END 2021-10-29 19:00 | disposition home or self-care (01) ==
LOC: ED 13:32
DX: R33.9 Retention of urine, unspecified (principal); Z46.6 Encounter for fitting and adjustment of urinary device; I10 Essential (primary) hypertension; Z79.899 Other long term (current) drug therapy
CPT/HCPCS: 36415; 51702; 80048; 81001; 82962; 85025; 87076; 87086; 87186; 96374; 96375; 99283; J2270; J2405; Q9967; J1815